=== PATIENT | female | born 1990 | race Two or more races ===

== ENCOUNTER 2022-06-07 07:26 | Emergency (ER) | payer MEDICAID ==
[~2022-06-07] VITALS: Ht 165.1 cm; Wt 91.0 kg
[2022-06-07] MEDS ORDERED: cefTRIAXone SOD 1,000 MG VL IM ONE (08:15)
[2022-06-07 08:25] VITALS: BP 152/93
[2022-06-07] MEDS ORDERED: AZIT500T66 PO (08:35)
[2022-06-07] MEDS ORDERED: LIDO2SOL23 MT (08:35)
== END 2022-06-07 08:42 | disposition home or self-care (01) ==
LOC: ER 07:26
DX: J03.90 Acute tonsillitis, unspecified (principal); Z87.891 Personal history of nicotine dependence
CPT/HCPCS: 96372; 99283; J0696